=== PATIENT | female | born 1950 | race Caucasian/White ===

== ENCOUNTER 2018-08-23 12:29 | Emergency (ER) | payer BC ==
--- NOTE | 2018-08-23 13:59 | ER Document Report ---
ED Medical Screen (RME) - General Chief Complaint: Abdominal Pain Stated Complaint: FLANK PAIN Time Seen by Provider: 08/23/18 13:54 Notes: 68-year-old female patient complaining of left lower quadrant abdominal pain that started somewhat suddenly yesterday. There is no nausea or vomiting. It is painful to get up and down, it is painful to be bounced around such as riding in a car. There is no fever. Uneventful past medical history with no surgeries and no regular medical problems. I have greeted and performed a rapid initial assessment of this patient. A comprehensive ED assessment and evaluation of the patient, analysis of test r esults and completion of the medical decision making process will be conducted by additional ED providers. TRAVEL OUTSIDE OF THE [place] IN LAST 30 DAYS: No - Related Data Allergies/Adverse Reactions: No Known Allergies Allergy (Verified 08/23/18 13:52) Past Medical History - Social History Frequency of alcohol use: Heavy Drug Abuse: None - Past Medical History Cardiac Medical History: Reports: Hx Hypertension Renal/ Medical History: Denies: Hx Peritoneal Dialysis - Immunizations Immunizations up to date: No Hx Diphtheria, Pertussis, Tetanus Vaccination: Yes Physical Exam - Vital signs Vitals: Temp Pulse Resp BP Pulse Ox 98.4 F 92 18 128/85 H 95 08/23/18 12:35 08/23/18 12:35 08/23/18 12:35 08/23/18 12:35 08/23/18 12:35 Course - Vital Signs Vital signs: Temp Pulse Resp BP Pulse Ox 98.4 F 92 18 128/85 H 95 08/23/18 12:35 08/23/18 12:35 08/23/18 12:35 08/23/18 12:35 08/23/18 12:35
[2018-08-23 14:22] LABS: ABSOLUTE BASOPHILS # (AUTO) 0.1 10^3/uL (0.0-0.2); ABSOLUTE LYMPHOCYTES (AUTO) 1.7 10^3/uL (0.5-4.7); ABSOLUTE MONOCYTES (AUTO) 0.6 10^3/uL (0.1-1.4); ABSOLUTE NEUT (AUTO) 7.7 10^3/uL (1.7-8.2); BASOPHILS % (AUTO) 0.8 % (0-2); EOSINOPHILS % (AUTO) 0.4 % (0-6); HEMATOCRIT 52.2 % (36.0-47.0); LYMPHOCYTES % (AUTO) 16.5 % (13-45); MEAN CORPUSCULAR HEMOGLOBIN 32.2 pg (27.0-33.4); MEAN CORPUSCULAR HGB CONC 34.6 g/dL (32.0-36.0); MEAN CORPUSCULAR VOLUME 93 fl (80-97); MONOCYTES % (AUTO) 6.2 % (3-13); PLATELET COUNT 170 10^3/uL (150-450); RED BLOOD COUNT 5.59 10^6/uL (3.72-5.28); RED CELL DISTRIBUTION WIDTH 13.3 % (11.5-14.0); SEGMENTED NEUTROPHILS % (AUTO) 76.1 % (42-78); TOTAL CELLS COUNTED % (AUTO) 100 %; WHITE BLOOD COUNT 10.2 10^3/uL (4.0-10.5)
[2018-08-23 14:32] LABS: APPEARANCE,URINE CLEAR; BILIRUBIN,URINE NEGATIVE (NEGATIVE); COLOR,URINE STRAW; GLUCOSE, URINE NEGATIVE (NEGATIVE); KETONES,URINE NEGATIVE (NEGATIVE); LEUKOCYTE ESTERASE,URINE NEGATIVE (NEGATIVE); NITRITE,URINE NEGATIVE (NEGATIVE); PROTEIN,URINE NEGATIVE (NEGATIVE); URINE SPECIFIC GRAVITY 1.002; UROBILINOGEN,URINE NEGATIVE mg/dL (<2.0)
[2018-08-23 14:35] LABS: ALANINE AMINOTRANSFERASE 22 U/L (9-52); ALBUMIN 4.1 g/dL (3.5-5.0); ALKALINE PHOSPHATASE 72 U/L (38-126); ANION GAP 8 (5-19); ASPARTATE AMINO TRANSFERASE 20 U/L (14-36); BILIRUBIN,DIRECT 0.4 mg/dL (0.0-0.4); BILIRUBIN,TOTAL 1.7 mg/dL (0.2-1.3); BLOOD UREA NITROGEN 11 mg/dL (7-20); CALCIUM 9.5 mg/dL (8.4-10.2); CARBON DIOXIDE 31 mmol/L (22-30); CHLORIDE 97 mmol/L (98-107); GLUCOSE 86 mg/dL (75-110); TOTAL PROTEIN 7.1 g/dL (6.3-8.2)
[2018-08-23] MEDS ORDERED: IBUPROFEN 800 MG TABLET PO ONE (15:48)
--- NOTE | 2018-08-23 16:39 | RADIOLOGY REPORT (SQ) ---
EXAM DESCRIPTION: CT ABD/PELVIS NO ORAL OR IV COMPLETED DATE/TIME: 08/23/2018 4:13 pm REASON FOR STUDY: LLQ pain COMPARISON: None. TECHNIQUE: CT scan of the abdomen and pelvis performed without intravenous or oral contrast. Images reviewed with lung, soft tissue, and bone windows. Reconstructed coronal and sagittal MPR images revi ewed. All images stored on PACS. All CT scanners at this facility use dose modulation, iterative reconstruction, and/or weight based d osing when appropriate to reduce radiation dose to as low as reasonably achievable (ALARA). [facility]: Dose Right [facility]: CareDose [facility]: Dose Right [facility]: Teradose 4D [facility]: Smart Get[employer]as RADIATION DOSE: CT Rad equipment meets quality standard of care and radiation dose reduction techniq ues were employed. CTDIvol: 6.8 mGy. DLP: 371 mGy-cm.mGy. LIMITATIONS: None. FINDINGS: LOWER CHEST: No significant findings. No nodules or infiltrates. NON-CONTRASTED LIVER, SPLEEN, ADRENALS: Evaluation limited by lack of IV contrast. No identified sign ificant masses. PANCREAS: No masses. No peripancreatic inflammatory changes. GALLBLADDER: No identified stones by CT criteria. No inflammatory changes to suggest cholecystitis. RIGHT KIDNEY AND URETER: No suspicious masses. Assessment limited by lack of IV contrast. No signif icant calcifications. No hydronephrosis or hydroureter. LEFT KIDNEY AND URETER: 5 mm low-attenuation fatty lesion in the posterior cortex. Assessment limited by lack of IV contrast. No significant calcifications. No hydronephrosis or hydroureter. AORTA AND RETROPERITONEUM: No aneurysm. No retroperitoneal masses or adenopathy. BOWEL AND PERITONEAL CAVITY: No obvious masses or inflammatory changes. No free fluid. APPENDIX: Normal. PELVIS, BLADDER, AND ABDOMINAL WALL:No abnormal masses. No free fluid. Bladder normal. BONES: No significant findings. OTHER: No other significant finding. IMPRESSION: 1. 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 2. NO OTHER SIGNIFICANT OR ACUTE PROCESS IN THE ABDOMEN OR PELVIS. COMMENT: Quality ID # [id number]: Final reports with documentation of one or more dose reduction techniques (e.g., Automated exposure control, adjustment of the mA and/or kV according to patient size, use of iterative reconstruction technique) TECHNICAL DOCUMENTATION: JOB ID: [id number] [employer]- All Rights Reserved Reading location - IP/workstation name: [email or web address]
[2018-08-23] MEDS ORDERED: DEXAMETHASONE SOD PHOS INJ 10 MG/1 ML VIAL IV ONE (17:07)
[2018-08-23] MEDS ORDERED: DIPHENHYDRAMINE HCL 50 MG/ML VIAL IV ONE (17:08)
--- NOTE | 2018-08-23 17:45 | ER Document Report ---
ED GI/ - General Chief Complaint: Abdominal Pain Stated Complaint: FLANK PAIN Time Seen by Provider: 08/23/18 13:54 Primary Care Provider: CARLOS MITCHELL PA-C [Primary Care Provider] - Follow up as needed Notes: 68-year-old female to emergency department chief complaint of left lower quadrant pain. Patient states that the pain came on rather suddenly. Radiated little bit to the left flank. Mostly located now around the left lower quadrant. Patient thought that she had a UTI so has been taking some [id number] medicine but has not helped. Patient still has all of her organs. Has never had any surgeries. Denies any fever, chills, sweats, diarrhea or vomiting. TRAVEL OUTSIDE OF THE [place] IN LAST 30 DAYS: No - HPI Patient complains to provider of: Abdominal pain Timing/Duration: Sudden, Waxing and waning Quality of pain: Sharp Severity at maximum: Moderate Severity in ED: Moderate Pain Level: 3 Location: LLQ, Suprapubic Vaginal bleeding (Compared to normal period): None - Related Data Allergies/Adverse Reactions: No Known Allergies Allergy (Verified 08/23/18 13:52) Past Medical History - General Information source: Patient - Social History Smoking Status: Current Every Day Smoker Cigarette use (# per day): Yes Frequency of alcohol use: Heavy Drug Abuse: None Lives with: Family Family History: Hypertension Patient has suicidal ideation: No Patient has homicidal ideation: No - Past Medical History Cardiac Medical History: Reports: Hx Hypertension Renal/ Medical History: Denies: Hx Peritoneal Dialysis - Immunizations Immunizations up to date: No Hx Diphtheria, Pertussis, Tetanus Vaccination: Yes Review of Systems - Review of Systems Notes: Constitutional: denies: Chills, Diaphoresis, Fever, Malaise, Weakness EENT: denies: Eye discharge, Blurred vision, Tearing, Double vision, Nose congestion, Nose discharge, Throat swelling, Mouth pain Cardiovascular: denies: Palpitations, Heart racing, Orthopnea, Dyspnea, Chest pa in Respiratory: denies: Cough, Hurts to breathe, Wheezing, Shortness of breath Gastrointestinal: denies: Diarrhea, Nausea, Vomiting, Black stools, bright red blood in stool. Left lower quadrant abdominal pain. Suprapubic abdominal pain. Genitourinary: denies: Burning, Dysuria, Discharge, Frequency, Flank pain, Hematuria Musculoskeletal: denies: Joint pain, Joint swelling, Muscle pain, Muscle stiffness, back pain Hematologic/Lymphatic: denies: Anemia, Easy bleeding, Easy bruising, Blood clots Neurological/Psychological: denies: Confusion, Dementia, Depression, Loss of consciousness Skin: No lesions, no masses, no skin breakdown, no abscesses Physical Exam - Vital signs Vitals: Temp Pulse Resp BP Pulse Ox 98.4 F 92 18 128/85 H 95 08/23/18 12:35 08/23/18 12:35 08/23/18 12:35 08/23/18 12:35 08/23/18 12:35 Interpretation: Normal - General General appearance: Appears well, Alert - HEENT Head: Normocephalic, Atraumatic Eyes: Normal Pupils: PERRL - Respiratory Respiratory status: No respiratory distress Chest status: Nontender Breath sounds: Normal Chest palpation: Normal - Cardiovascular Rhythm: Regular Heart sounds: Normal auscultation Murmur: No - Abdominal Inspection: Normal Distension: No distension Bowel sounds: Normal Tenderness: Nontender Organomegaly: No organomegaly - Back Back: Normal, Nontender - Extremities General upper extremity: Normal inspection, Nontender, Normal color, Normal ROM, Normal temperature General lower extremity: Normal inspection, Nontender, Normal color, Normal ROM, Normal temperature, Normal weight bearing. No: Mariam's sign - Neurological Neuro grossly intact: Yes Cognition: Normal Orientation: AAOx4 [place] Coma Scale Eye Opening: Spontaneous [place] Coma Scale Verbal: Oriented [place] Coma Scale Motor: Obeys Commands [place] Coma Scale Total: 15 Speech: Normal Motor strength normal: LUE, RUE, LLE, RLE Sensory: Normal - Psychological Associated symptoms: Normal affect, Normal mood - Skin Skin Temperature: Warm Skin Moisture: Dry Skin Color: Normal, Other - No vesicular rashes consistent with shingles Course - Re-evaluation Re-evalutation: 08/23/18 17:41 Laboratory 08/23/18 08/23/18 08/23/18 14:06 14:06 14:06 WBC 10.2 RBC 5.59 H Hgb 18.0 H Hct 52.2 H MCV 93 MCH 32.2 MCHC 34.6 RDW 13.3 Plt Count 170 Seg Neutrophils % 76.1 Lymphocytes % 16.5 Monocytes % 6.2 Eosinophils % 0.4 Basophils % 0.8 Absolute Neutrophils 7.7 Absolute Lymphocytes 1.7 Absolute Monocytes 0.6 Absolute Eosinophils 0.0 Absolute Basophils 0.1 Sodium 136.0 L Potassium 4.0 Chloride 97 L Carbon Dioxide 31 H Anion Gap 8 BUN 11 Creatinine 0.85 Est GFR ( Amer) > 60 Est GFR (Non-Af Amer) > 60 Glucose 86 Calcium 9.5 Total Bilirubin 1.7 H Direct Bilirubin 0.4 Neonat Total Bilirubin Not Reportable Neonat Direct Bilirubin Not Reportable Neonat Indirect Bili Not Reportable AST 20 ALT 22 Alkaline Phosphatase 72 Total Protein 7.1 Albumin 4.1 Urine Color STRAW Urine Appearance CLEAR Urine pH 6.0 Ur Specific [place] 1.002 Urine Protein NEGATIVE Urine Glucose (UA) NEGATIVE Urine Ketones NEGATIVE Urine Blood SMALL H Urine Nitrite NEGATIVE Urine Bilirubin NEGATIVE Urine Urobilinogen NEGATIVE Ur Leukocyte Esterase NEGATIVE Urine WBC (Auto) 0 Urine RBC (Auto) 1 Squamous Epi Cells Auto 1 Urine Ascorbic Acid NEGATIVE Abdomen/Pelvis CT 08/23/18 15:48 IMPRESSION: 1. 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 2. NO OTHER SIGNIFICANT OR ACUTE PROCESS IN THE ABDOMEN OR PELVIS. At this time find no significant acute pathology in the abdomen. Patient's symptoms are actually gone. At this time I will place her on some ibuprofen. Patient does not request anything stronger. I have given her instructions to return in 24-48 hours if symptoms are getting worse. - Vital Signs Vital signs: Temp Pulse Resp BP Pulse Ox 98.4 F 92 18 128/85 H 95 08/23/18 12:35 08/23/18 12:35 08/23/18 12:35 08/23/18 12:35 08/23/18 12:35 - Laboratory Result Diagrams: 08/23/18 14:06 08/23/18 14:06 Laboratory results interpreted by me: 08/23/18 08/23/18 08/23/18 14:06 14:06 14:06 RBC 5.59 H Hgb 18.0 H Hct 52.2 H Sodium 136.0 L Chloride 97 L Carbon Dioxide 31 H Total Bilirubin 1.7 H Urine Blood SMALL H Discharge - Discharge Clinical Impression: Left lower quadrant abdominal pain of unknown etiology Condition: Good Disposition: HOME, SELF-CARE Instructions: Abdominal Pain ([facility]) Prescriptions: Ibuprofen [Motrin 800 mg Tablet] 800 mg PO Q8H PRN 10 Days #30 tab PRN Reason: For Pain Scale 3-4 Referrals: CARLOS MITCHELL PA-C [Primary Care Provider] - Follow up as needed
[2018-08-23 18:15] VITALS: BP 138/75
== END 2018-08-23 18:05 | disposition home or self-care (01) ==
LOC: ER 12:29
DX: R10.32 Left lower quadrant pain (principal); F17.210 Nicotine dependence, cigarettes, uncomplicated; I10 Essential (primary) hypertension
CPT/HCPCS: 36415; 74176; 80053; 81001; 85025; 99284

== ENCOUNTER 2019-06-27 12:52 | Emergency (ER) | payer SELFPAY ==
[2019-06-27] MEDS ORDERED: NORMAL SALINE 1000 ML 1,000 ML IV ONE (13:33)
--- NOTE | 2019-06-27 13:35 | ER Document Report ---
ED Medical Screen (RME) - General Chief Complaint: Low Blood Pressure Stated Complaint: BLOOD PRESSURE PROBS Time Seen by Provider: 06/27/19 13:24 Primary Care Provider: SANTOSH WALLACE PA-C [Primary Care Provider] - Follow up as needed TRAVEL OUTSIDE OF THE [place] IN LAST 30 DAYS: No - HPI Notes: 06/27/19 13:34 69-year-old female to the emergency department with complaints of lightheadedness and feeling like she is going to pass out and headache as well as erratic blood pressures. Apparently on June 24 that she was seen by her primary care and started on a new blood pressure medicine. She typically takes 20 mg of lisinopril and she was started on 25 mg of HCTZ. She states that in the past couple of days she has been feeling like she is going to pass out and that her head hurts. She states the headache is not really new; it is on the top of her head. It started about 3 months ago. She denies any focal neurological deficits. She denies any falls. She denies any sameer passing out. I performed a brief medical screening exam on the patient determined that she will need further evaluation and management by me inside provider. I placed initial orders to help expedite her care. - Related Data Allergies/Adverse Reactions: No Known Allergies Allergy (Verified 08/23/18 13:52) Past Medical History - Social History Frequency of alcohol use: Occasional Drug Abuse: None - Past Medical History Cardiac Medical History: Reports: Hx Hypertension Renal/ Medical History: Denies: Hx Peritoneal Dialysis - Immunizations Immunizations up to date: No Hx Diphtheria, Pertussis, Tetanus Vaccination: Yes Physical Exam - Vital signs Vitals: Temp Pulse Resp BP Pulse Ox 98.4 F 79 16 114/72 94 06/27/19 13:00 06/27/19 13:00 06/27/19 13:00 06/27/19 13:00 06/27/19 13:00 Course - Vital Signs Vital signs: Temp Pulse Resp BP Pulse Ox 98.4 F 79 16 114/72 94 06/27/19 13:00 06/27/19 13:00 06/27/19 13:00 06/27/19 13:00 06/27/19 13:00 Doctor's Discharge - Discharge Referrals: RODRIGO,SANTOSH G, PA-C [Primary Care Provider] - Follow up as needed
[2019-06-27 14:51] LABS: ALBUMIN 4.5 g/dL (3.5-5.0); ALKALINE PHOSPHATASE 70 U/L (38-126); ANION GAP 6 (5-19); ASPARTATE AMINO TRANSFERASE 25 U/L (14-36); BILIRUBIN,TOTAL 0.6 mg/dL (0.2-1.3); BLOOD UREA NITROGEN 15 mg/dL (7-20); CALCIUM 9.6 mg/dL (8.4-10.2); CARBON DIOXIDE 33 mmol/L (22-30); CHLORIDE 96 mmol/L (98-107); GLUCOSE 90 mg/dL (75-110); POTASSIUM 3.7 mmol/L (3.6-5.0); TOTAL PROTEIN 7.2 g/dL (6.3-8.2)
[2019-06-27 14:53] LABS: ABSOLUTE EOSINOPHILS # (AUTO) 0.2 10^3/uL (0.0-0.6); ABSOLUTE LYMPHOCYTES (AUTO) 1.9 10^3/uL (0.5-4.7); ABSOLUTE MONOCYTES (AUTO) 0.4 10^3/uL (0.1-1.4); ABSOLUTE NEUT (AUTO) 3.9 10^3/uL (1.7-8.2); APPEARANCE,URINE CLEAR; BASOPHILS % (AUTO) 0.7 % (0-2); BILIRUBIN,URINE NEGATIVE (NEGATIVE); COLOR,URINE STRAW; GLUCOSE, URINE NEGATIVE (NEGATIVE); HEMATOCRIT 49.7 % (36.0-47.0); KETONES,URINE NEGATIVE (NEGATIVE); LEUKOCYTE ESTERASE,URINE NEGATIVE (NEGATIVE); LYMPHOCYTES % (AUTO) 29.5 % (13-45); MEAN CORPUSCULAR HEMOGLOBIN 31.2 pg (27.0-33.4); MEAN CORPUSCULAR HGB CONC 34.1 g/dL (32.0-36.0); MEAN CORPUSCULAR VOLUME 91 fl (80-97); MONOCYTES % (AUTO) 6.8 % (3-13); NITRITE,URINE NEGATIVE (NEGATIVE); PLATELET COUNT 199 10^3/uL (150-450); PROTEIN,URINE NEGATIVE (NEGATIVE); RED BLOOD COUNT 5.45 10^6/uL (3.72-5.28); RED CELL DISTRIBUTION WIDTH 13.1 % (11.5-14.0); TOTAL CELLS COUNTED % (AUTO) 100 %; URINE SPECIFIC GRAVITY 1.005; UROBILINOGEN,URINE NEGATIVE mg/dL (<2.0); WHITE BLOOD COUNT 6.5 10^3/uL (4.0-10.5)
--- NOTE | 2019-06-27 15:45 | ER Document Report ---
ED General - General Chief Complaint: Low Blood Pressure Stated Complaint: BLOOD PRESSURE PROBS Time Seen by Provider: 06/27/19 13:24 Primary Care Provider: SANTOSH WALLACE PA-C [Primary Care Provider] - Follow up as needed TRAVEL OUTSIDE OF THE [place] IN LAST 30 DAYS: No - HPI Notes: Patient is a 69-year-old female who presents to the emergency department for evaluation of dizziness, lightheadedness, "just not feeling right." She saw her primary care provider a few days ago. Her blood pressure was 160 in the office. She was started on hydrochlorothiazide. She states has been on lisinopril 20 mg for some time. She states she was not feeling well, feeling dizzy and lightheaded. Her blood pressures were reading 89, 91 systolic. She presents here to the emergency department for further evaluation. Before I saw her the patient received IV fluids. She states she is feeling improved. She denies any current dizziness, no chest pain or shortness of breath. She denies any difficulty seeing, speaking, swallowing. She states otherwise she been taking her regular medications as prescribed. She denies any pain of any sort. - Related Data Allergies/Adverse Reactions: No Known Allergies Allergy (Verified 08/23/18 13:52) Home Medications: Lisinopril 20 mg daily, hydrochlorothiazide 25 mg daily, Tylenol Extra Strength as needed Past Medical History - General Information source: Patient - Social History Smoking Status: Current Every Day Smoker Frequency of alcohol use: Occasional Drug Abuse: None Family History: Hypertension Patient has suicidal ideation: No Patient has homicidal ideation: No - Past Medical History Cardiac Medical History: Reports: Hx Hypertension Neurological Medical History: Reports: Hx Migraine Renal/ Medical History: Denies: Hx Peritoneal Dialysis - Immunizations Immunizations up to date: No Hx Diphtheria, Pertussis, Tetanus Vaccination: Yes Review of Systems - Review of Systems Constitutional: See HPI EENT: No symptoms reported Cardiovascular: No symptoms reported Respiratory: No symptoms reported Gastrointestinal: No symptoms reported Genitourinary: No symptoms reported Musculoskeletal: No symptoms reported Skin: No symptoms reported Neurological/Psychological: No symptoms reported Physical Exam - Vital signs Vitals: Temp Pulse Resp BP Pulse Ox 98.4 F 79 16 114/72 94 06/27/19 13:00 06/27/19 13:00 06/27/19 13:06/27/19 13:06/27/19 13:00 - Notes Notes: Vital signs reviewed, please refer to chart. Head is normocephalic, atraumatic. Pupils equal round, reactive to light. Neck is supple without meningismus. Heart is regular rate and rhythm. Lungs are clear to auscultation bilaterally. Abdomen is soft, nontender, normoactive bowel sounds throughout. Extremities without cyanosis, clubbing. Posterior calves are nontender. Peripheral pulses are equal. Skin is warm and dry. Patient is awake, alert, oriented x3. Cranial nerves II - XII are grossly intact without focal neurological deficits. Strength is plus 5 out of 5 bilateral upper and lower extremities. Sensation is intact. Reflexes symmetrical. Intact [id number], rapid alternating movements, [id number]. Course - Re-evaluation Re-evalutation: 06/27/19 15:43 Patient presents to the emergency department for evaluation. She was placed on a environmental monitoring specialist and had labs drawn as per triage. Her IV fluids were given to her prior to orthostatic vital signs being performed. I performed orthostatic vital signs in the room. Between sitting and standing the patient lost 9 mmHg on her systolic blood pressure, and heart rate only went up by 4. She is not orthostatic at this time, but again she had Peter received IV fluids. Her blood pressure was still 1 30-1 40 systolic. I explained to the patient that this is not excellent blood pressure control and I encouraged her to continue on an antihypertensive. If she was feeling this poorly and having low blood pressure numbers, I encouraged her to cut her current hydrochlorothiazide dose in half, keep a good record of her blood pressures, and bring those to her primary care provider in 1 to 2 weeks for a follow-up. She was amenable to this plan was discharged. - Vital Signs Vital signs: Temp Pulse Resp BP Pulse Ox 98.4 F 79 16 114/72 94 06/27/19 13:06/27/19 13:06/27/19 13:06/27/19 13:06/27/19 13:00 - Laboratory Result Diagrams: 06/27/19 14:06 06/27/19 14:06 Laboratory results interpreted by me: 06/27/19 06/27/19 14:06 14:06 RBC 5.45 H Hgb 17.0 H Hct 49.7 H Sodium 135.3 L Chloride 96 L Carbon Dioxide 33 H Est GFR ( Amer) 59 L Est GFR (MDRD) Non-Af 48 L - EKG Interpretation by Me Additional EKG results interpreted by me: 06/27/19 15:44 Sinus mechanism with a rate of 66 bpm. Normal axis and intervals. No acute ST changes concerning for ischemia or infarction. Discharge - Discharge Clinical Impression: Dizziness Hypertension Qualifiers: Hypertension type: essential hypertension Qualified Code(s): I10 - Essential (primary) hypertension Condition: Stable Disposition: HOME, SELF-CARE Instructions: Dizziness ([facility]), High Blood Pressure, Requiring Treatment ([facility]) Additional Instructions: Please decrease your hydrochlorothiazide dose to 1/2 tablet, or 12-1/2 mg daily. Keep a daily record of your blood pressure and bring this to up follow-up with your primary care provider in 1 to 2 weeks. Return to the emergency department with worsening or new concerning symptoms of any sort. Referrals: SANTSOH WALLACE PA-C [Primary Care Provider] - Follow up as needed
[2019-06-27 16:08] VITALS: BP 131/76
--- NOTE | 2019-06-27 23:27 | EKG REPORT ---
SEVERITY:- ABNORMAL ECG - SINUS RHYTHM ABNRM R PROG, CONSIDER ASMI OR LEAD PLACEMENT BORDERLINE T ABNORMALITIES, INFERIOR LEADS : Confirmed by: Maty Reno 27-Jun-2019 23:26:09
== END 2019-06-27 16:11 | disposition home or self-care (01) ==
LOC: ER 12:52
DX: R42 Dizziness and giddiness (principal); I10 Essential (primary) hypertension; Z79.899 Other long term (current) drug therapy; F17.200 Nicotine dependence, unspecified, uncomplicated
CPT/HCPCS: 93005; 99284; 96360; 36415; 83735; 85025; 80053; 81001; 84484; 93010; J7030